=== PATIENT | female | born 1955 | race Caucasian/White ===

== ENCOUNTER → 2017-08-28 | Day surgery (SDC) | payer OTHER ==
[~2017-08-28] VITALS: Ht 154.9 cm; Wt 66.2 kg
[~2017-08-28] MED LIST: ACETAMINOPHEN 1000 MG/100 ML 100 ML IV ONE; ASPI81TA11 PO; ATEN25TA PO; BUPIVACAINE HCL PF 0.5% 30 ML VIAL ONE; CHLORHEXIDINE GLUCONATE 2 % 1 PACK (2 CLOTHS) TOPICAL PRN; FAMOTIDINE 20 MG/2 ML VIAL ONE; INSULIN HUMAN REGULAR 1,000 UNITS/10 ML VIAL SQ PRN; KETOROLAC TROMETHAMINE 30 MG/ML (IVP) VIAL IV PUSH ONE; LACTATED RINGER'S 1000 ML IV PRN; LIDOCAINE HCL 2% 50 ML VIAL ONE; METOPROLOL TARTRATE 25 MG TAB PO PRN; MIDAZOLAM HCL 2 MG/2 ML VIAL IV ONE; ONDANSETRON HCL 4 MG/2 ML VIAL IV PUSH ONE; ONDANSETRON HCL 4 MG/2 ML VIAL IV PUSH PRN; PHENYLEPH/NS 1000 MCG/10 ML SYR IV ONE; POVIDONE IODINE 5% (ANTISEPSIS KIT) 4 APPLICATIONS EACH NARE PRN; PROPOFOL 200 MG/20 ML AMP IV ONE; SODIUM CHLORID 0.9% 500 ML IV PRN; SODIUM CHLORIDE 0.9% FLUSH 5 ML FLUSH IVF PRN; SODIUM CHLORIDE 0.9% FLUSH 5 ML FLUSH IVF SCH; ceFAZolin INJ 1,000 MG VIAL ONE; ePHEDrine/NS 25 MG/5 ML SYR IV ONE; traMADol HCL 50 MG TAB PO PRN
--- NOTE | 2017-08-28 09:05 | HHI.PR ---
Immediate Post Op Note Procedure Date: Aug 28, 2017 Pre Op Diagnosis: (1) Carpal tunnel syndrome, right Post Op Diagnosis: (1) Carpal tunnel syndrome, right Surgeon: Damaso Cohen Length Control Tester(s): Andre Rosado Procedure: Right carpal tunnel release Estimated blood loss: None. Anesthesia: MAC, Local Drains: None Patient to: PACU Patient Condition: Good Costa Cohen MD (Charles) Aug 28, 2017 09:05
--- NOTE | 2017-08-28 09:55 | MP ---
cc: [place] VARGAS. DATE OF SURGERY 08/28/2017 PREOPERATIVE DIAGNOSIS Right carpal tunnel syndrome. POSTOPERATIVE DIAGNOSIS Right carpal tunnel syndrome. OPERATION PERFORMED Right carpal tunnel release. SURGEON Costa Vargas MD ELECTRONIC COMMUNICATIONS TECHNICIAN ALESIA Stark ANESTHESIA Monitored anesthesia care and local. INDICATIONS AND FINDINGS This 62-year-old woman has had paresthesias into her median distribution in her hand which have not been nonresponsive to conservative measures. She had an electromyelogram which showed carpal tunnel syndrome. FINDINGS AT SURGERY Showed a very tight carpal tunnel without any significant visible damage to the median nerve. PROCEDURE The patient was brought to the operating room and sedation carried out. She was placed in supine position on the operating table with her right arm on an arm board and a tourniquet about her right upper arm. The right hand was then prepped with alcohol, Hibiclens and Chloraprep and draped in the usual manner with the hand draped free. After an appropriate time-out procedure, local anesthetic was administered using a mixture of Marcaine 0.25% plain and lidocaine 2% plain. The arm was elevated for exsanguination. The tourniquet was inflated to 200 mmHg. An incision was made approximately 2 cm in length directly over the carpal tunnel. This was carried down to the transverse carpal ligament. The transverse carpal ligament was then incised down to the contents of the carpal tunnel. A [place] dissector was placed into this and this was extended distally into the palmar fascia releasing this and then proximally into the distal wrist fascia. After this was released, hemostasis was achieved with bipolar electrocautery. Local anesthesia was administered throughout the wound. Wound closure then commenced with 4-0 Monocryl interrupted simple sutures with buried knots for the subcutaneous tissues and 4-0 Monocryl continuous subcuticular closure for the skin. The wound was dressed with Steri-Strips, followed by dry dressing, sterile Sof-Rol and Juan bandage. The tourniquet was released at 25 minutes. The patient was transferred from the operating room to the recovery room in satisfactory condition having tolerated the procedure well. COUNTS Correct. SPECIMENS None. ESTIMATED BLOOD LOSS None. MD ANGELES Colbert/CECELIA /9:06 AM /9:48 AM
[2017-08-28 11:13] VITALS: BP 138/58; PULSE 58; RESP 18; TEMP 97.4; O2SAT 99
--- NOTE | 2017-08-28 12:23 | EKG ---
Date Performed: 08/28/2017 Time Performed: 06:54:42 PTAGE: 62 years EKG: SINUS BRADYCARDIA LEFT ANTERIOR FASCICULAR BLOCK DELAYED R WAVE PROGRESSION, CANNOT RULE OU T PRIOR SEPTAL INFARCT SINCE THE PRIOR TRACING THE SINUS BRADYCARDIA IS NEW BUT THERE IS OTHERWISE NO SIGNIFICANT SERIAL CHANGE ABNORMAL ECG PREVIOUS TRACING : 09/13/2015 20.54 DOCTOR: Guerline Herrera Interpretating Date/Time 08/28/2017 12:21:22
== END | disposition home or self-care (01) ==
LOC: HSDC 06:14
PROVIDERS: ATTEND Orthopaedic Surgery
DX: G56.01 Carpal tunnel syndrome, right upper limb (principal); I10 Essential (primary) hypertension
CPT/HCPCS: 01810; 64721; 93005; J0131; J0690; J1885; J2250; J2370; J2405; J3010; J7120